=== PATIENT | male | born 1945 | race Caucasian/White ===

== ENCOUNTER → 2018-03-06 | Outpatient (CLI) | payer OTHER ==
[2018-03-06 09:44] LABS: ABSOLUTE EOSINOPHILS 0.3 thou/uL (0.0-0.7); ABSOLUTE LYMPHOCYTES 1.3 thou/uL (0.8-5.3); ABSOLUTE MONOCYTES 0.6 thou/uL (0.0-1.2); ABSOLUTE NEUTROPHILS 7.1 thou/uL (1.6-8.1); BASOPHILS 0.3 %; EOSINOPHILS 3.3 %; HEMATOCRIT 45.3 % (42.0-52.0); HEMOGLOBIN 15.2 gm/dL (14.0-18.0); LYMPHOCYTES 13.7 %; MCH 30.6 pg (26.0-34.0); MCHC 33.6 g/dL (28.0-37.0); MONOCYTES 6.6 %; MPV 8.6 fl. (7.2-11.1); NUCLEATED RBCS 0 /100WBC; PLATELET COUNT* 218 thou/uL (150-400); POLYS 76.1 %; RBC 4.98 mil/uL (4.50-6.00); RDW-CV 15.2 % (10.5-14.5); WBC 9.3 thou/uL (4.0-11.0)
[2018-03-06 09:56] LABS: ALBUMIN 3.9 g/dL (3.4-5.0); ALKALINE PHOSPHATASE 69 U/L (46-116); ANION GAP 7 mmol/L (7-16); BUN 17 mg/dL (7-18); CALCIUM 8.8 mg/dL (8.5-10.1); CHLORIDE 102 mmol/L (98-107); CHOLESTEROL 181 mg/dL (<200); CO2 32 mmol/L (21-32); CREATININE 1.3 mg/dL (0.6-1.3); GLUCOSE 107 mg/dL (70-99); HDL CHOLESTEROL 52 mg/dL (>40); LDL CHOLESTEROL 117 mg/dL (<100); POTASSIUM 4.2 mmol/L (3.5-5.1); SGOT 17 U/L (15-37); SGPT 24 U/L (30-65); SODIUM 141 mmol/L (136-145); TC:HDL 3.5 Ratio (Not establshd); TOTAL BILIRUBIN 0.7 mg/dL (<0.1-1.0); TOTAL PROTEIN 7.6 g/dL (6.4-8.2); TRIGLYCERIDE 63 mg/dL (<150); VLDL 13 mg/dL (<40)
[2018-03-06 09:59] LABS: SERUM ASSESSMENT Clear
[2018-03-06 23:07] LABS: GLYCOHEMOGLOBIN (HGB A1C) 5.7 % (4.8-5.6)
== END ==
LOC: M.ULTRA 08:47
PROVIDERS: Family Medicine
DX: K21.9 Gastro-esophageal reflux disease without esophagitis (principal); R73.09 Other abnormal glucose; R79.89 Other specified abnormal findings of blood chemistry

== ENCOUNTER 2019-06-15 06:34 | Inpatient (IN) | payer OTHER ==
[2019-06-03 08:53] LABS: HEMATOCRIT 42.2 % (42.0-52.0); HEMOGLOBIN 14.4 gm/dL (14.0-18.0); MCH 31.6 pg (26.0-34.0); MCHC 34.2 g/dL (28.0-37.0); MCV 92.4 fL (80.0-100.0); MPV 8.5 fl. (7.2-11.1); RBC 4.57 mil/uL (4.50-6.00); RDW-CV 14.4 % (10.5-14.5); WBC 7.6 thou/uL (4.0-11.0)
[2019-06-03 09:09] LABS: PROTIME 10.1 Seconds (9.20-11.50)
[2019-06-03 09:17] LABS: ALBUMIN 3.6 g/dL (3.4-5.0); CALCIUM 9.1 mg/dL (8.5-10.1); CREATININE 1.3 mg/dL (0.6-1.3); POTASSIUM 3.8 mmol/L (3.5-5.1); TOTAL BILIRUBIN 0.8 mg/dL (<0.1-1.0); TOTAL PROTEIN 7.2 g/dL (6.4-8.2)
[2019-06-03 09:24] LABS: URINE BILIRUBIN NEGATIVE (Negative); URINE BLOOD NEGATIVE (Negative); URINE CLARITY CLEAR; URINE COLOR YELLOW; URINE GLUCOSE-RANDOM NEGATIVE (Negative); URINE KETONES NEGATIVE (Negative); URINE LEUKOCYTES-REFLEX NEGATIVE (Negative); URINE NITRITE-REFLEX NEGATIVE (Negative); URINE PROTEIN 1+ (Negative); URINE SPECIFIC GRAVITY 1.025 (1.005-1.030)
--- NOTE | 2019-06-03 16:31 | EKG ---
[place] [address] ELECTROCARDIOGRAM REPORT Name: HERNANDO LEE Room: PRE IN [facility]#: [id number] Admission: Attend Phys: Alessandra Gill Discharge: Date of : 47 Report #: [id number] THIS REPORT FOR: //name// [facility] Test Date: 2019-06-03 Test Time: 09:14:09 Pat Name: HERNANDO LEE Department: Room: Gender: M Siebel Consultant: : 1945 Requested By: Aamir David Order Number: [id number] MD: Chase Solis Measurements Intervals [place] Rate: 72 P: 73 [place]: 209 QRS: 65 QRSD: 112 T: 69 QT: 426 QTc: 467 Interpretive Statements Sinus rhythm Multiple ventricular premature complexes Borderline intraventricular conduction delay No previous ECG available for comparison Electronically Signed On 06-03-2019 16:31:32 CDT by Chase Solis [email or web address] <ELECTRONICALLY SIGNED> By: Chase Solis MD, [facility] 06/03/19 1631 0914 3 Chase Solis MD, FACC /EPI
[~2019-06-15] VITALS: Ht 182.9 cm; Wt 119.3 kg
--- NOTE | ~2019-06-15 | OP ---
[facility] [address] [place] [address] OPERATIVE REPORT Name: HERNANDO LEE Room: [address] IN [facility]#: [id number] Admission: 06/15/19 Attend Phys: Alessandra Gill Discharge: Date of : 47 Report #: [id number] THIS REPORT FOR: //name// CC: Aamir Forrest DATE OF SERVICE: 06/15/2019 PREOPERATIVE DIAGNOSIS: Right knee osteoarthritis. POSTOPERATIVE DIAGNOSIS: Right knee osteoarthritis. PROCEDURE: Right total knee arthroplasty. SURGEON: Aamir David II, DO VETERINARY VIROLOGIST: NEHEMIAS Thomas. ANESTHESIA: General endotracheal. ESTIMATED BLOOD LOSS: 50 mL. ANTIBIOTICS: Ancef preoperatively. DRAINS: Medium Hemovac. COMPLICATIONS: None. Condition of the patient is stable to recovery room. IMPLANTS: Listed in the operative record and progress note. BRIEF HISTORY: The patient is seen in the preoperative area. Preoperative H and P was performed. Site was marked, questions were answered. Risks and benefits were discussed with the patient in detail about surgery. The patient wished to proceed, assuming all risks. DESCRIPTION OF PROCEDURE: The patient was taken to the operative suite and placed supine on the operative table, given appropriate anesthesia. A well-padded tourniquet applied to the upper thigh, which was inflated to 300 mmHg after gravity exsanguination, the operative knee was sterilely prepped and draped. Surgery began by midline incision. This was carried down to the subcutaneous tissues. A medial parapatellar arthrotomy was performed and carried down to bone. The patella was then everted and excess soft tissue removed from around the femur. Femoral cutting block was then applied, checked [facility] [address] [place] [address] OPERATIVE REPORT Name: HERNANDO LEE Room: [address] IN [facility].#: [id number] Admission: 06/15/19 Attend Phys: Alessandra Gill Discharge: Date of : 47 Report #: [id number] with a drop erika for rotational alignment, pinned in appropriate position and appropriate cuts were made. A 4-in-1 cutting block was then applied, checked for rotational alignment, pinned in appropriate position and appropriate cuts were made. The tibia was then exposed. Excess meniscus was removed. Retractor was placed on the collateral ligaments. The tibial cutting block was then applied, pinned in appropriate position, checked with drop erika for rotational alignment and slope and appropriate cut was made. Tibial bone was removed. Tibial base plate was then applied, checked for rotational alignment with the drop erika and pinned in appropriate position. The femur was then applied and box cut was reamed. This was then trialed with appropriate spacer, which showed excellent fit and fill and excellent stability of knee through all range of motion. The patella was then reamed in appropriate fashion and sized to appropriate size. Three peg holes were drilled and it was then trialed and showed excellent flexion, extension, excellent tracking of the patella within the groove. These trials were removed. The tibia was punched in appropriate fashion. Bone ends were cleansed with Pulsavac irrigation and cement was mixed and applied to the final implants. These were then malleted into position and held the knee in extension and compressed to allow cement to cure. After it cured, excess was removed utilizing a Sycamore and osteotome. Wound was then copiously irrigated and the final spacer was then malleted into position. The tourniquet was deflated. Hemostasis was maintained with electrocautery. Pain cocktail was injected. PRP gel sprayed throughout the internal aspects of the knee. Medium Hemovac drain was applied. Capsule was closed with #2 FiberWire and #1 Vicryl in [id number] fashion. Skin was closed with 2-0 Vicryl and running 3-0 Monocryl. Dermabond and sterile dressing applied. Gigi wrap and PolarCare applied. The patient transported to recovery room in stable condition. Counts were correct throughout the procedure. By: [id number] David II, DO /nt
[~2019-06-15 06:34] MED LIST: FLONASE 0.05%50 MCG NASAL; MULTIPLE VITAM1 EAC2 PO; PROTONIX40 M1 PO
[2019-06-15 10:43] VITALS: BP 147/73
[2019-06-15 15:00] VITALS: BP 130/61
--- NOTE | 2019-06-15 17:51 | 2DMMODE ---
[place] [address] 2 D/M-MODE ECHOCARDIOGRAM Name: HERNANDO LEE Room: [address] IN [facility]#: [id number] Admission: 06/15/19 Attend Phys: Cheng Forrest Discharge: Date of : 47 Date of Service: 06/15/19 1750 Report #: [id number] THIS REPORT FOR: //name// APPROVED REPORT Study performed: 06/15/2019 15:35:20 EXAM: Comprehensive 2D, Doppler, and color-flow Echocardiogram Patient Location: In-Patient Room #: 230 Status: routine BSA: 2.41 HR: 86 bpm BP: 130/61 mmHg Rhythm: NSR Other Information Study Quality: Good Indications Abnormal ECG 2D Dimensions IVSd: 12.37 (7-11mm) LVOT Diam: 21.84 (18-24mm) LVDd: 61.74 mm PWd: 11.39 (7-11mm) Ascending Ao: 38.08 (22-36mm) LVDs: 49.44 (25-40mm) Aortic Root: 39.06 mm Volumes Left Atrial Volume (Systole) LA ESV Index: 36.60 mL/m2 Aortic Valve AoV Peak Rishi.: 1.94 m/s AO Peak Gr.: 15.01 mmHg LVOT Max P.47 mmHg AO Mean Gr.: 9.40 mmHg LVOT Mean P.85 mmHg LVOT Max V: 0.93 m/s AO V2 VTI: 39.87 cm LVOT Mean V: 0.63 m/s FRANCISCO (VTI): 1.87 cm2 LVOT V1 VTI: 19.86 cm Mitral Valve E/A Ratio: 0.69 MV Decel. Time: 166.48 ms MV E Max Rishi.: 0.97 m/[place] [address] 2 D/M-MODE ECHOCARDIOGRAM Name: HERNANDO LEE Room: [address] IN [facility].#: [id number] Admission: 06/15/19 Attend Phys: Cheng Forrest Discharge: Date of : 47 Date of Service: 06/15/19 1750 Report #: [id number] MV PHT: 48.28 ms MVA (PHT): 4.56 cm2 TDI E/Lateral E': 12.13 E/Medial E': 8.82 Medial E' Rishi.: 0.11 m/s Lateral E' Rishi.: 0.08 m/s Pulmonary Valve PV Peak Rishi.: 1.24 m/s PV Peak Gr.: 6.19 mmHg Left Ventricle The left ventricle is normal size. There is normal LV segmental wall motion. There is normal left ventricular wall thickness. Overall left ventricular systolic function is at the lower limits of normal. LVEF is 50-55%. Grade I - abnormal relaxation pattern. Right Ventricle The right ventricle is normal size. The right ventricular systolic function is normal. Atria Left atrium is mildly dilated. Right atrium is mildly dilated. Aortic Valve Aortic valve leaflets are mildly thickened. No aortic regurgitation is present. Mild aortic stenosis. Mitral Valve The mitral valve is normal in structure. Trace mitral regurgitation. No evidence of mitral valve stenosis. Tricuspid Valve The tricuspid valve is normal in structure. Unable to assess PA pressure. Trace tricuspid regurgitation. Pulmonic Valve The pulmonary valve is normal in structure. There is no pulmonic valvular regurgitation. Great Vessels The aortic root is normal in size. IVC is normal in size and collapses >50% with inspiration[place] [address] 2 D/M-MODE ECHOCARDIOGRAM Name: HERNANDO LEE Room: [address] IN [facility]#: [id number] Admission: 06/15/19 Attend Phys: Cheng Forrest Discharge: Date of : 47 Date of Service: 06/15/19 0430 Report #: [id number] There is no pericardial effusion. <Conclusion> The left ventricle is normal size. There is normal left ventricular wall thickness. Overall left ventricular systolic function is at the lower limits of normal. LVEF is 50-55%. Grade I - abnormal relaxation pattern. Left atrium is mildly dilated. Right atrium is mildly dilated. Mild aortic stenosis. IVC is normal in size and collapses >50% with inspiration. <ELECTRONICALLY SIGNED> By: Chase Solis MD, FACC 06/15/191749 49 49 Chase Solis MD, FACC /INF
--- NOTE | 2019-06-15 18:34 | EKG ---
[place] [address] ELECTROCARDIOGRAM REPORT Name: HERNANDO LEE Room: [address] ADM IN [facility].#: [id number] Admission: 06/15/19 Attend Phys: Alessandra Gill Discharge: Date of : 47 Report #: [id number] THIS REPORT FOR: //name// [facility] Test Date: 2019-06-15 Test Time: 09:08:57 Pat Name: HERNANDO LEE Department: Room: [facility] Gender: M Clinical Instructor: : 1945 Requested By: Joe Comer Order Number: [id number] Kita MD: Chase Solis Measurements Intervals [place] Rate: 75 P: 71 [place]: 200 QRS: 80 QRSD: 110 T: 57 QT: 415 QTc: 464 Interpretive Statements Sinus rhythm Ventricular trigeminy Compared to ECG 06/03/2019 09:14:09 No significant changes Electronically Signed On 06-15-2019 18:34:37 CDT by Chase Solis [email or web address] <ELECTRONICALLY SIGNED> By: Chase Solis MD, [facility] 06/15/19 1834 7 Chase Solis MD, [facility] /EPI
[2019-06-15 20:00] VITALS: BP 136/71
[2019-06-16] VITALS: BP 148/68
[2019-06-16 04:00] VITALS: BP 146/66
[2019-06-16 05:16] LABS: HEMATOCRIT 40.5 % (42.0-52.0); HEMOGLOBIN 13.4 gm/dL (14.0-18.0)
--- NOTE | 2019-06-16 05:18 | NUR ---
VSS. SEE MAR. SEE CHARTING. FALL PRECAUTIONS IN PLACE. HOURLY ROUNDING FOR SAFETY.
[2019-06-16 07:30] VITALS: BP 149/60
--- NOTE | 2019-06-16 11:16 | NUR ---
SW met with pt to complete initial assessment, introduce self, and SW role. Pt alert, oriented, pleasant. Pt lives at home with his . Pt has RW and pt mentioned that he will have the CPM at dc as well. Pt might have HH needs and was agreeable to HH if recommended at dc. SW to continue to follow to assist with safe dc planning.
[2019-06-16 11:22] VITALS: BP 150/45
[2019-06-16] MEDS ORDERED: XARELTO10 M1 PO (14:43)
[2019-06-16] MEDS ORDERED: PERCOCET PO (14:44)
[2019-06-16 14:45] VITALS: BP 150/45
== END 2019-06-16 15:31 | disposition home or self-care (01) | DRG 470 ==
LOC: M.SUR 06:34 → EDSTATUS 06:35 → M.PRE 06:36 → M.TBA 08:27 → M.2W 08:27 → M.PRE 12:31 → M.2W 15:12 → M.PRE 16:34 → M.2W 06-16 15:31
PROVIDERS: Orthopaedic Surgery; ADMIT Internal Medicine
PROC: 0SRC0J9 Replacement of Right Knee Joint with Synthetic Substitute, Cemented, Open Approach (ICD-10-PCS; principal; 2019-06-15)
DX: M17.11 Unilateral primary osteoarthritis, right knee (principal); I50.22 Chronic systolic (congestive) heart failure; I49.3 Ventricular premature depolarization; M19.90 Unspecified osteoarthritis, unspecified site; K21.9 Gastro-esophageal reflux disease without esophagitis; J44.9 Chronic obstructive pulmonary disease, unspecified; Z87.891 Personal history of nicotine dependence; Z80.42 Family history of malignant neoplasm of prostate; Z80.8 Family history of malignant neoplasm of other organs or systems